=== PATIENT | male | born 1990 | race Caucasian/White ===

== ENCOUNTER 2018-08-26 21:56 | Emergency (ER) | payer BC, SELFPAY ==
[2018-08-26 22:01] VITALS: BP 126/79; PULSE 81; RESP 16; TEMP 36.9; O2SAT 98
--- NOTE | 2018-08-26 22:25 | ED.GENADUL_ITS ---
Discharge Plan Disposition Patient Disposition: HOME Condition: Good Discharge Details Chief Complaint: Orthopedic Clinical Impression: Contusion Primary Care Provider: None,None ED Provider: Zafar Pizarro Home Meds and New Rx's Prescriptions: No Action Proventil HFA 1 PUFF HFA aerosol inhaler 1 inh Inhalation PRN PRNRF: 0 Discharge Instructions Instructions: Contusion in Adults (ED) Additional Instructions: Please use ice, Tylenol and Motrin for control pain and swelling. If you notice any worsening of your symptoms, or any new symptoms such as vomiting, diarrhea, fever, chills, shortness of breath, chest pain, numbness, weakness, or fainting , please return immediately to the emergency department for reevaluation. Please follow up with your primary care provider as soon as possible for reassessment and reevaluation. As always, it was a pleasure participating in your medical care today. Medical Decision Making This is a very pleasant 28-year-old male who is right-hand dominant/ambidextrous who presents today for evaluation of pain in his right knuckles over the fourth and fifth MCP joints. Patient slipped and landed with his knuckles onto the ground. He has notable swelling over the fourth and fifth MCP joints. He has some chronic abnormalities for the position of his fourth finger, the patient reassures multiple times is chronic and not acute. He has had multiple tendon lacerations for that finger in the past which is led to a slight internal rotation and perpetual flexion of the distal tip. Physical exam shows no evidence of significant laxity, or weakness or neurovascular deficit. We will get an x-ray to evaluate for acute fracture. He does not want anything for the pain at this time. He does have a superficial abrasion over the knuckle but no other abnormality. He denies any bite injury. 11:09 PM X-ray results have returned and demonstrate no evidence of significant fracture or dislocation. No fracture fracture. Patient's pain is well controlled and he does not want any Tylenol or Motrin. I feel that the notable swelling is most likely secondary to hematoma with small microvessel rupture. With a neurovascularly intact hand, no evidence of significant fracture, and well controlled pain I feel he can be safely discharged we have placed her plantar biotic ointment on the patient's abrasion, and placed a bandage. I have extensively reviewed the treatment plan and discharge instructions with the patient and their family. I have addressed all patient concerns at this time. The patient and family was made aware of what symptoms to monitor for that would warrant a return to the emergency department. Discussed the plan with the patient and family, they demonstrate verbal understanding and agreement with our assessment and plan at this time. FINDINGS: Bones/joints: Normal. No fracture or dislocation. Soft tissues: Soft tissue swelling over the fourth of the metacarpal heads. IMPRESSION: No acute osseous findings. Thank you for allowing us to participate in the care of your patient. Dictated and Authenticated by: Naomi Ro MD [facility] General Date/Time Provider Initiated Documentation: 08/26/18 22:03 . HPI Narrative: This is a 28-year-old male with no significant past medical history whose immunizations are up-to-date including his tetanus which he got 2 years ago who presents today for right hand pain. The patient states that he was walking and tripped and his right fist slammed into the ground. He did not hit his head, or it any other part of his body. He developed notable pain in his fourth and fifth metacarpal phalangeal knuckles. He has not taken any Tylenol or Motrin. This occurred roughly 1-2 hours ago. Pain is made worse with movement, improved with nothing. He denies any associated numbness or tingling. Pain is notably worsened when he tries to make a fist. Of note the patient is right-hand dominant, and he is also notably injured the tendons for the fourth finger on his right hand, which has led to it being internally rotated, laterally deviating, with a perpetual mild flexion of the distal tip. Patient denies any other complaints or modifying factors at this time. Related Data Home Medications Medication Instructions Recorded Confirmed Proventil HFA 1 inh INHALATION PRN PRN 05/24/15 08/26/18 Allergies Allergy/AdvReac Type Severity Reaction Status Date / Time animal dander Allergy Intermediate Wheezing Uncoded 08/26/18 22:01 General Stated Complaint: Orthopedic JESSICA: 4 Review of Systems Review of Systems All systems reviewed & are unremarkable except as noted in HPI and below PFSH Social History Smoking/Tobacco Use Status: Current every day Exam Narrative Exam Narrative: 1.Const: Well-nourished, Well-developed, appearing stated age 2.Eyes: PERRL, no conjunctival injection, and symmetrical lids. 3.ENT: Atraumatic external nose and ears. Moist MM. Neck: Symmetric, trachea midline, No thyromegaly. 4.CVS: +S1/S2, No murmurs or gallops. Peripheral pulses 2+ and equal in all extremities. Brisk capillary refill in all extremities. 5.RESP: Unlabored respiratory effort. Clear to auscultation bilaterally. No wheezes rales or rhonchi 6.GI: Soft, Nontender/Nondistended, No hepatosplenomegaly. No guarding or rebound. 7.MSK: Symmetrically palpable radial and ulnar pulses. Capillary refill <2 seconds to all digits. Intact sensation to light touch of the radial, median and ulnar nerves demonstrated by testing in the dorsal web space of the thumb, the distal palmar aspect of the index finger, and the lateral surface of the fifth finger. 2 point discrimination intact to 5mm of discrimination in the affected digit. Intact motor function of the radial, median and ulnar nerves demonstrated by strength of extension of the isolated distal joint of the index finger, hand customer relations specialist, and spreading of the 2nd through 5th digits. Intact recurrent median nerve as demonstrated by ability to move thumb fully through opposition, abduction and flexion. No snuffbox tenderness. Patient does have a chronic physical exam abnormality that is notable for a hx of injury to the tendons for the fourth finger on his right hand, which has led to it being chronically internally rotated, laterally deviating, with a perpetual mild flexion of the distal tip. Patient assures multiple times that this is what he looks like chronically for his finger. Notable swelling is noted over the fourth and fifth metacarpal phalangeal joint. Mild tenderness in this area. 8.Skin: Warm, Dry. No rashes or lesions. There is a small superficial abrasion over the knuckle of the fourth MCP joint. No evidence of laceration. 9.Neuro: pharmacoepidemiologist II-XII grossly intact. Sensation grossly intact, no focal neurologic deficits. 10.Psych: (AAO) x3. Appropriate mood and affect Course Vital Signs Temperature 36.9 C 08/26/18 22:01 Pulse 81 08/26/18 22:01 Respiratory Rate 16 08/26/18 22:01 Blood Pressure 126/79 08/26/18 22:01 Pulse Oximetry 98 08/26/18 22:01 Temperature 36.9 C 08/26/18 22:01 Temperature Source Temporal Artery Scan 08/26/18 22:01 Pulse 81 08/26/18 22:01 Respiratory Rate 16 08/26/18 22:01 Respiratory Effort 08/26/18 22:01 Blood Pressure 126/79 08/26/18 22:01 Blood Pressure Position Sitting 08/26/18 22:01 Pulse Oximetry 98 08/26/18 22:01 Oxygen Delivery Method Room Air 08/26/18 22:01 Oxygen Flow Rate 0 08/26/18 22:01 End Tidal Co2 6 08/26/18 22:01
--- NOTE | 2018-08-26 22:25 | DI.RAD_ITS ---
SYMPTOM/DIAGNOSIS: FELL, ? FX, PAIN RIGHT HAND: There is soft tissue swelling over the metacarpal region. No fracture or dislocation is seen. There is no evidence of foreign body. IMPRESSION: Soft tissue swelling.
--- NOTE | 2018-08-26 23:06 | DI.VRAD_ITS ---
EXAM: XR Right Hand Complete, 3 or more Views EXAM DATE/TIME: 08/26/2018 10:17 PM CLINICAL HISTORY: 28 years old, male; Pain; Hand; Right; Patient HX: PT fell into a wall going down stairs; Additional info: R/O FX 4th/5th mcp joint. Swollen and laceration over joint and some pain in wrist TECHNIQUE: XR Right hand 3 or more views. COMPARISON: No relevant prior studies available. FINDINGS: Bones/joints: Normal. No fracture or dislocation. Soft tissues: Soft tissue swelling over the fourth of the metacarpal heads. IMPRESSION: No acute osseous findings. Dictated and Authenticated by: Naomi Ro MD. Ordering:ELISA Stephen MD
== END 2018-08-26 23:13 | disposition home or self-care (01) ==
PROVIDERS: Emergency Provider Student in an Organized Health Care Education/Training Program
DX: S60.221A Contusion of right hand, initial encounter (principal); W01.0XXA Fall on same level from slipping, tripping and stumbling without subsequent striking against object, initial encounter
CPT/HCPCS: 99283; 73130; 99282

== ENCOUNTER 2019-01-23 08:22 | Emergency (ER) | payer SELFPAY ==
[2019-01-23 08:28] VITALS: BP 118/61; PULSE 68; RESP 18; TEMP 36.7; O2SAT 97
--- NOTE | 2019-01-23 08:46 | W.ED.GENAD ---
Discharge Plan Disposition Patient Disposition: HOME Discharge Details Chief Complaint: Nk/Back Pain Clinical Impression: Low back pain Primary Care Provider: Gianna Thacker ED Provider: Jalen Dwyer Home Meds and New Rx's Prescriptions: New cyclobenzaprine 5 mg tablet 5 mg PO BID Qty: 10 RF: 0 ibuprofen 600 mg tablet 600 mg PO TID Qty: 60 RF: 0 Continued Proventil HFA 1 PUFF HFA aerosol inhaler 1 inh Inhalation PRN PRNRF: 0 Discharge Instructions Instructions: How to Stop Smoking (ED), Low Back Strain (ED) Additional Instructions: Please avoid activities that worsen pain. No heavy lifting. No bending or twisting. Please stop smoking. Please contact your primary care physician to arrange follow-up. Call for an appointment. Return to the ER for any worsening or new concerning symptoms. Stand Alone Forms: Work Release Referrals: Gianna Thacker MD [Primary Care Provider] - Discharge Data Discharge Date/Time-TO BE ENTERED AT DEPARTURE: 01/23/19 09:27 Medical Decision Making 28yo m with right lumbar paraspinal back pain over the past 1 month, flared up yesterday with lifting, neurologically intact. Suspect right lumbar paraspinal muscle spasm versus disc herniation. Plan to treat with Toradol 30 mg IM and Valium 5 mg orally. Patient reassessed and pain improved. I discussed smoking cessation with the patient. Patient does seem somewhat motivated. I did encourage him to follow-up with his primary care physician. HPI General Mode of arrival: ambulatory. Date/Time Provider Initiated Documentation: 01/23/19 08:33. Limitations to Documentation: no limitations. Information obtained by: patient. HPI Narrative: 28yo m smoker here with chief complaint of low back pain. Patient notes that he has had mild intermittent pain in his right low back over the past 1 month. He does not recall any specific trauma. Yesterday he bent over and was pulling hard on a 4 lackey and felt sudden worsening of right low back pain. Pain was moderate last night and when he woke up this morning pain was more severe. Pain is worse with certain positions including twisting and bending. No associated numbness or weakness. No bowel or bladder dysfunction. Pain is localized to his right paraspinal lumbar back and extends into his right buttock. Related Data Home Medications Medication Instructions Recorded Confirmed Proventil HFA 1 inh INHALATION PRN PRN 05/24/15 08/26/18 cyclobenzaprine 5 mg PO BID #10 tab 01/23/19 ibuprofen 600 mg PO TID #60 tab 01/23/19 Previous Rx's Medication Instructions Recorded cyclobenzaprine 5 mg PO BID #10 tab 01/23/19 ibuprofen 600 mg PO TID #60 tab 01/23/19 Allergies Allergy/AdvReac Type Severity Reaction Status Date / Time animal dander Allergy Intermediate Wheezing Uncoded 08/26/18 22:01 General Stated Complaint: Nk/Back Pain JESSICA: 4 Review of Systems Gastrointestinal Reports as per HPI and Denies abdominal pain Musculoskeletal Reports as per HPI and Denies numbness Integumentary/Breasts Denies rash Neurologic Reports as per HPI and Denies numbness PFSH Social History Smoking/Tobacco Use Status: Current every day Tobacco Type: cigarettes Drug use: Occasionally Substance use type: marijuana Do you feel safe in your relationship?: Yes Exam Const General: cooperative and no acute distress HENMT Head: normocephalic and atraumatic Eyes Conjunctivae: normal conjunctivae Sclera: normal sclerae Neck Neck: trachea midline and supple Resp Auscultation: clear to auscultation bilaterally, no rales, no rhonchi and no wheezes Cardio Jugular venous pressure: no JVD Rate: regular rate and not tachycardic Rhythm: regular rhythm GI Palpation: soft, not firm, no guarding, no masses, not rigid and nontender Back/Spine/Pelvis Cervical Spine: No cervical spinal tenderness Thoracic/Lumbar Spine: paraspinal tenderness (rt lumbar paraspinal ), No thoracic spinal tenderness and No lumbar spinal tenderness Skin General skin exam: no rashes or lesions noted Neuro General: alert, awake and tone normal Motor: muscle tone normal throughout and strength 5/5 throughout (bilateral LEs) Sensory Exam: no sensory deficits noted (no saddle anesth, distal LE sensation intact) Course Vital Signs Temperature 36.7 C 01/23/19 08:28 Pulse 68 01/23/19 08:28 Respiratory Rate 18 01/23/19 08:28 Blood Pressure 118/61 01/23/19 08:28 Pulse Oximetry 97 01/23/19 08:28 Temperature 36.7 C 01/23/19 08:28 Temperature Source Skin 01/23/19 08:28 Pulse 68 01/23/19 08:28 Respiratory Rate 18 01/23/19 08:28 Respiratory Effort Non-Labored 01/23/19 08:28 Blood Pressure 118/61 01/23/19 08:28 Pulse Oximetry 97 01/23/19 08:28 Oxygen Delivery Method Room Air 01/23/19 08:28 Oxygen Flow Rate 0 01/23/19 08:28
--- NOTE | 2019-01-23 08:55 | ED.GENADUL_ITS ---
Discharge Plan Disposition Patient Disposition: HOME Discharge Details Chief Complaint: Nk/Back Pain Clinical Impression: Low back pain Primary Care Provider: Gianna Thacker ED Provider: Jalen Dwyer Home Meds and New Rx's Prescriptions: New cyclobenzaprine 5 mg tablet 5 mg PO BID Qty: 10 RF: 0 ibuprofen 600 mg tablet 600 mg PO TID Qty: 60 RF: 0 Continued Proventil HFA 1 PUFF HFA aerosol inhaler 1 inh Inhalation PRN PRNRF: 0 Discharge Instructions Instructions: How to Stop Smoking (ED), Low Back Strain (ED) Additional Instructions: Please avoid activities that worsen pain. No heavy lifting. No bending or twisting. Please stop smoking. Please contact your primary care physician to arrange follow-up. Call for an appointment. Return to the ER for any worsening or new concerning symptoms. Stand Alone Forms: Work Release Referrals: Gianna Thacker MD [Primary Care Provider] - Discharge Data Discharge Date/Time-TO BE ENTERED AT DEPARTURE: 01/23/19 09:27 Medical Decision Making 28yo m with right lumbar paraspinal back pain over the past 1 month, flared up yesterday with lifting, neurologically intact. Suspect right lumbar paraspinal muscle spasm versus disc herniation. Plan to treat with Toradol 30 mg IM and Valium 5 mg orally. Patient reassessed and pain improved. I discussed smoking cessation with the patient. Patient does seem somewhat motivated. I did encourage him to follow-up with his primary care physician. HPI General Mode of arrival: ambulatory . Date/Time Provider Initiated Documentation: 01/23/19 08:33 . Limitations to Documentation: no limitations . Information obtained by: patient . HPI Narrative: 28yo m smoker here with chief complaint of low back pain. Patient notes that he has had mild intermittent pain in his right low back over the past 1 month. He does not recall any specific trauma. Yesterday he bent over and was pulling hard on a 4 lackey and felt sudden worsening of right low back pain. Pain was moderate last night and when he woke up this morning pain was more severe. Pain is worse with certain positions including twisting and bending. No associated numbness or weakness. No bowel or bladder dysfunction. Pain is localized to his right paraspinal lumbar back and extends into his right buttock. Related Data Home Medications Medication Instructions Recorded Confirmed Proventil HFA 1 inh INHALATION PRN PRN 05/24/15 08/26/18 cyclobenzaprine 5 mg PO BID #10 tab 01/23/19 ibuprofen 600 mg PO TID #60 tab 01/23/19 Previous Rx's Medication Instructions Recorded cyclobenzaprine 5 mg PO BID #10 tab 01/23/19 ibuprofen 600 mg PO TID #60 tab 01/23/19 Allergies Allergy/AdvReac Type Severity Reaction Status Date / Time animal dander Allergy Intermediate Wheezing Uncoded 08/26/18 22:01 General Stated Complaint: Nk/Back Pain JESSICA: 4 Review of Systems Gastrointestinal Reports as per HPI and Denies abdominal pain Musculoskeletal Reports as per HPI and Denies numbness Integumentary/Breasts Denies rash Neurologic Reports as per HPI and Denies numbness PFSH Social History Smoking/Tobacco Use Status: Current every day Tobacco Type: cigarettes Drug use: Occasionally Substance use type: marijuana Do you feel safe in your relationship?: Yes Exam Const General: cooperative and no acute distress HENMT Head: normocephalic and atraumatic Eyes Conjunctivae: normal conjunctivae Sclera: normal sclerae Neck Neck: trachea midline and supple Resp Auscultation: clear to auscultation bilaterally, no rales, no rhonchi and no wheezes Cardio Jugular venous pressure: no JVD Rate: regular rate and not tachycardic Rhythm: regular rhythm GI Palpation: soft, not firm, no guarding, no masses, not rigid and nontender Back/Spine/Pelvis Cervical Spine: No cervical spinal tenderness Thoracic/Lumbar Spine: paraspinal tenderness (rt lumbar paraspinal ), No th oracic spinal tenderness and No lumbar spinal tenderness Skin General skin exam: no rashes or lesions noted Neuro General: alert, awake and tone normal Motor: muscle tone normal throughout and strength 5/5 throughout (bilateral LEs) Sensory Exam: no sensory deficits noted (no saddle anesth, distal LE sensation intact) Course Vital Signs Temperature 36.7 C 01/23/19 08:28 Pulse 68 01/23/19 08:28 Respiratory Rate 18 01/23/19 08:28 Blood Pressure 118/61 01/23/19 08:28 Pulse Oximetry 97 01/23/19 08:28 Temperature 36.7 C 01/23/19 08:28 Temperature Source Skin 01/23/19 08:28 Pulse 68 07/04/19 08:28 Respiratory Rate 18 01/23/19 08:28 Respiratory Effort Non-Labored 01/23/19 08:28 Blood Pressure 118/61 01/23/19 08:28 Pulse Oximetry 97 01/23/19 08:28 Oxygen Delivery Method Room Air 01/23/19 08:28 Oxygen Flow Rate 0 01/23/19 08:28
[2019-01-23] MEDS: Ketorolac 30 MG/ML VIAL IM (08:56)
[2019-01-23] MEDS: diazePAM 5 MG TAB PO (08:56)
[2019-01-23 09:02] VITALS: BP 111/68; PULSE 65; RESP 16; O2SAT 99
== END 2019-01-23 09:27 | disposition home or self-care (01) ==
PROVIDERS: Emergency Provider Student in an Organized Health Care Education/Training Program; PCP Family Medicine
DX: M54.5 Low back pain (principal); X50.9XXA Other and unspecified overexertion or strenuous movements or postures, initial encounter
CPT/HCPCS: 96372; 99284; 99283; J1885

== ENCOUNTER 2019-06-26 12:02 | Emergency (ER) | payer SELFPAY ==
[2019-06-26 12:05] VITALS: BP 130/80; PULSE 70; RESP 12; TEMP 36.6; O2SAT 99
--- NOTE | 2019-06-26 12:32 | ED.GENADUL_ITS ---
Discharge Plan Disposition Patient Disposition: HOME Condition: Good Discharge Details Chief Complaint: Laceration Clinical Impression: Finger laceration Primary Care Provider: Gianna Thacker ED Provider: Karen Ham Home Meds and New Rx's Prescriptions: No Action albuterol sulfate [Proventil HFA] 1 PUFF HFA aerosol inhaler 1 inh Inhalation PRN PRNRF: 0 Discharge Instructions Instructions: Finger Laceration (ED) Additional Instructions: Keep initial dressing in place for the next 2 days. Then remove and gently wash area with soap and water once or twice daily. Apply small amount of antibiotic ointment over the wound. Observe for any signs of infection. Suture removal in 10 days. There is a possibility that this skin will not reattach as discussed. 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 Patient presents with a distal finger laceration to the left second digit. Flap type/avulsion of the distal tuft, significant blanching noted to the flap. No bony involvement per radiology. Patient with a distal avulsion flap to the tuft with a very small approximately 1 mm skin island. Flap has lost its blood supply however will suture in place as a natural bandage and reevaluate if flap takes. 5 sutures to reapproximate flap. Small distal nail which was damaged was removed. Patient is aware there is a chance this flap may not take. Wound care discussed at length. The patient was stable and requested discharge. Prior to discharge, my usual and customary return precautions were reviewed with the patient - this included follow-up instructions and reasons to return to the Emergency Department if conditions worsens, does not improve as expected, or other new concerns arise. HPI General Date/Time Provider Initiated Documentation: 06/26/19 12:08 . HPI Narrative: Is a 29-year-old patient who was injured while working. He was cutting vegetables and lacerated his left second digit distally. Patient presents due to persistence of bleeding. Injury occurred prior to arrival. Tetanus last in 2017 is up-to-date. Denies numbness, tingling or weakness. No other concerns or complaints at this time. Related Data Home Medications Medication Instructions Recorded Confirmed albuterol sulfate [Proventil HFA] 1 inh INHALATION PRN PRN 05/24/15 06/26/19 Allergies Allergy/AdvReac Type Severity Reaction Status Date / Time animal dander Allergy Intermediate Wheezing Uncoded 06/26/19 12:08 General Stated Complaint: Laceration JESSICA: 4 Review of Systems All systems reviewed & are unremarkable except as noted in HPI and below Musculoskeletal Musculoskeletal: Denies numbness and Denies tingling Integumentary/Breasts Skin/Breast: Reports other (Laceration) Neurologic Neurologic: Denies numbness and Denies tingling [facility] Social History Smoking/Tobacco Use Status: Current every day Tobacco Type: cigarettes Alcohol Intake: current Alcohol Intake frequency: a few times a week Drug use: Occasionally Substance use type: marijuana Do you feel safe at home: Yes Do you feel safe in your relationship?: Yes Exam Narrative Exam Narrative: CONST: Healthy appearing patient, in no acute distress. Well hydrated. Alert and alert. MUSCULOSKELETAL: Normal Gait. FROM of all extremities. SKIN: Normal. Dry. No rashes. Patient with a avulsion laceration noted to the distal tuft of the left second finger. Flexion extension intact. Bleeding controlled with pressure. Blanching of the flap noted. NEURO: Alert and awake. Speech clear. PSYCH: Normal affect. Cooperative. Course Vital Signs Vital signs: Vital Signs Temperature 36.6 C 06/26/19 12:05 Pulse 70 06/26/19 12:05 Respiratory Rate 12 06/26/19 12:05 Blood Pressure 130/80 06/26/19 12:05 Pulse Oximetry 99 06/26/19 12:05 Temperature 36.6 C 06/26/19 12:05 Temperature Source Temporal Artery Scan 06/26/19 12:05 Pulse 70 06/26/19 12:05 Respiratory Rate 12 06/26/19 12:05 Respiratory Effort 06/26/19 12:08 Blood Pressure 130/80 06/26/19 12:05 Blood Pressure Position Sitting 06/26/19 12:05 Pulse Oximetry 99 06/26/19 12:05 Oxygen Delivery Method Room Air 06/26/19 12:05 Oxygen Flow Rate 0 06/26/19 12:05 Pain Level 5 06/26/19 12:05 Procedures Laceration finger: Site: hand Side (If applicable): left Size (cm): 1.5 Description: flap Local Anesthetic: Bupivicaine 0.5% Amount of anesthesia used (mL): 4 Pre-repair: wound explored and irrigated extensively Skin layer closed with: other (prolene) Size (cm): 4-0 Number of sutures: 5 Technique: simple, interrupted
--- NOTE | 2019-06-26 12:45 | DI.RAD_ITS ---
EXAM: XR FINGER LT INDEX INDICATION: injury r/o fracture. COMPARISON: XR hand RT limited from 08/26/2018 TECHNIQUE: 2D digital imaging was performed. FINDINGS: Gauze is noted over the finger. No fracture or foreign body is seen.
[2019-06-26 15:58] VITALS: BP 130/80; PULSE 70; RESP 12; TEMP 36.6; O2SAT 99
== END 2019-06-26 14:27 | disposition home or self-care (01) ==
PROVIDERS: Emergency Provider Physician Assistant; PCP Family Medicine
DX: S61.311A Laceration without foreign body of left index finger with damage to nail, initial encounter (principal); W26.0XXA Contact with knife, initial encounter; Y93.G1 Activity, food preparation and clean up; Y99.0 Civilian activity done for income or pay
CPT/HCPCS: 12001; 99283; 73140; 99281

== ENCOUNTER 2019-07-06 12:05 | Emergency (ER) | payer SELFPAY ==
[2019-07-06 12:09] VITALS: BP 123/81; PULSE 75; RESP 16; TEMP 36.3; O2SAT 98
--- NOTE | 2019-07-06 12:12 | ED.GENADUL_ITS ---
Discharge Plan Disposition Patient Disposition: HOME Condition: Stable Discharge Details Chief Complaint: SutureRem Clinical Impression: Visit for suture removal Primary Care Provider: Gianna Thacker ED Provider: Gabby Velásquez Home Meds and New Rx's Prescriptions: Continued albuterol sulfate [Proventil HFA] 1 PUFF HFA aerosol inhaler 1 inh Inhalation PRN PRNRF: 0 Discharge Instructions Instructions: Stitches Removal (ED) Additional Instructions: Keep wound clean and dry. Cover wound with bandage if risk of contamination. Otherwise you can keep the wound open to air if resting at home to allow edges to dry and heal. Follow-up with your primary care doctor in 1 week as needed. Return to the emergency department with any worsening or new concerning symptoms such as fever, increased pain, redness or swelling.. Discharge Data Discharge Physician: Gabby Velásquez Medical Decision Making 29-year-old male who is 10 days status post left finger laceration closed with 5 Prolene sutures returns for suture removal. Wound edges healing well. No signs of infection. [address] in place. Sutures easily removed. Wound covered with bacitracin and dressing. Patient was advised that the wound is still healing and is most vulnerable now that the sutures have been removed. He was advised on proper wound care. Advised to follow up with the primary care doctor for re-evaluation. Usual and customary return precautions given prior to discharge. HPI General Mode of arrival: ambulatory . Date/Time Provider Initiated Documentation: 07/06/19 12:08 . Limitations to Documentation: no limitations . Information obtained by: patient . History of Present Illness 29 year old M presents to the emergency department with the chief complaint of suture removal , and is localized to the upper extremity (L 2nd finger). Patient started experiencing this day(s) (10) and it has been constant. Related Data Home Medications Medication Instructions Recorded Confirmed albuterol sulfate [Proventil HFA] 1 inh INHALATION PRN PRN 05/24/15 07/06/19 Allergies Allergy/AdvReac Type Severity Reaction Status Date / Time animal dander Allergy Intermediate Wheezing Uncoded 07/06/19 12:13 General JESSICA: 4 Review of Systems All systems reviewed & are unremarkable except as noted in HPI and below PFSH Social History Smoking/Tobacco Use Status: Current every day Tobacco Type: cigarettes Alcohol Intake: current Alcohol Intake frequency: a few times a week Drug use: Occasionally Substance use type: marijuana Do you feel safe at home: Yes Do you feel safe in your relationship?: Yes Exam Const General: cooperative, healthy appearing and no acute distress HENMT Head: normal to inspection Mouth: oral mucosae normal Eyes General: appearance normal, both eyes and all related structures Neck Neck: normal visual inspection Resp Effort & Inspection: normal respiratory effort and able to speak in complete sentences Cardio Rate: regular rate Skin General skin exam: no rashes or lesions noted Neuro General: alert, awake, oriented x3 and no focal motor deficits Motor: muscle tone normal throughout Sensory Exam: no sensory deficits noted Extrem General: normal capillary refill Other: 1 x 1 cm circular skin flap noted in place with 5 Prolene sutures encircling edges of the wound which is on the distal lateral aspect of left second fingertip. Wound healing very well. No signs of edema, erythema, drainage or bleeding. Psych Appearance: grossly normal Affect: normal affect
== END 2019-07-06 12:20 | disposition home or self-care (01) ==
LOC: ER 12:15
PROVIDERS: Emergency Provider Physician Assistant; PCP Family Medicine
DX: S61.211D Laceration without foreign body of left index finger without damage to nail, subsequent encounter (principal); W26.0XXD Contact with knife, subsequent encounter; Z48.02 Encounter for removal of sutures